=== PATIENT | female | born 1985 | race Caucasian/White ===

== ENCOUNTER 2017-07-18 16:29 | Emergency (ER) | payer OTHER ==
[~2017-07-18] VITALS: Ht 157.5 cm; Wt 71.3 kg
[2017-07-18 16:45] VITALS: TEMP 37; Ht 157.5 cm; Wt 71.3 kg
[2017-07-18] MEDS ORDERED: SODIUM CHLORIDE 0.9% 1000ML 1,000 ML IV STA (16:58)
[2017-07-18] MEDS ORDERED: MoRPHine SULFATE 4 MG/ML 1 ML CARP\\VIAL IV STA ×2 (17:01→18:51)
--- NOTE | 2017-07-18 17:10 | EMERGENCY ROOM VISIT NOTE ---
ED Visit Note First contact with patient: 16:48 CHIEF COMPLAINT: Right lower quadrant abdominal pain HISTORY OF PRESENTING ILLNESS: This is a 32-year-old female presents to the emergency department with complaint of right lower quadrant pain for the past 2 days. Patient states the pain was initially intermittent, but has become more severe and constant since yesterday afternoon, worse with certain movements, better with rest, 7/10. The pain does not radiate. She has tried Motrin this morning around 10 AM, which she states did not help. She notes that she had some watery diarrhea the day before her pain started, but has not had any diarrhea since that time. She denies any bloody or black stools. She has had nausea, but no vomiting, chills, but no fever. She notes that she has not had much of an appetite for the past 2 days. She does note some increased urinary frequency, but denies any dysuria, hematuria, or urgency. She does report a history of UTI and kidney stones in the past. She has had 2 C-sections and a partial hysterectomy, no other abdominal surgeries. She denies any chest pain, shortness of breath, dizziness or syncope, back pain, abnormal vaginal bleeding or discharge, or rash. REVIEW OF SYSTEMS: A complete 10 point review of systems was reviewed with the patient with pertinent positives and negatives as per history of present illness. All else were negative. PAST MEDICAL HISTORY: Anxiety SOCIAL HISTORY: Lives at home with family. She is a former smoker, denies alcohol and recreational drug use. ALLERGIES: Reviewed in chart. PHYSICAL EXAM: CONSTITUTIONAL: Pleasant and cooperative. No acute distress. Mildly dehydrated , but otherwise well appearing and well nourished. HEENT: Normocephalic, atraumatic. Pupils equal, round and reactive to light, EOMI. TMs normal. Pharynx normal. Tacky mucous membranes. NECK: Supple, full active range of motion without discomfort. RESPIRATORY: Clear to auscultation bilaterally with no wheezing, crackles, rhonchi or stridor. Equal expansion bilaterally. CARDIOVASCULAR: Regular rate and rhythm with no murmurs, rubs or gallops. Normal peripheral perfusion. No edema. GASTROINTESTINAL: Soft, moderately tender in the right lower quadrant and suprapubic region, nondistended. Positive McBurney's point tenderness, but no rebound tenderness or guarding. Negative Rovsing. Positive psoas sign. No palpable masses or HSM. Bowel sounds present in all quadrants. No CVA tenderness bilaterally. MUSCULOSKELETAL: Full range of motion of all joints without discomfort. INTEGUMENTARY: No rash or other significant dermatologic conditions noted. NEUROLOGIC: Alert and oriented X 4 with normal affect. Normal strength and sensation in all 4 extremities. No focal neurologic deficits noted. Normal speech. Normal gait observed. ED COURSE AND MEDICAL DECISION MAKING: CC: Patient presenting with complaint of RLQ pain DIFFERENTIAL DIAGNOSIS: Includes, but not limited to appendicitis, mesenteric adenitis, UTI, pyelonephritis, ureteral stone, ovarian cyst, ovarian torsion, TOA, among others. INTERPRETATION OF LABS: No leukocytosis, no anemia, no significant electrolyte abnormalities, normal renal function, normal liver enzymes and lipase. UA appears consistent with contamination. IMAGING: ABDOMEN AND PELVIS CT WITH IV CONTRAST CT DOSE: 384.07 mGy.cm HISTORY: Right lower quadrant abdominal pain. TECHNIQUE: Multiaxial CT images of the abdomen and pelvis were performed following the use of intravenous contrast. A dose lowering technique was utilized adhering to the principles of ALARA. COMPARISON STUDY: None. FINDINGS: The lung bases are clear. No pneumoperitoneum. No pneumatosis. There are few scattered subcentimeter hypodense lesions within the right hepatic lobe. The largest measures 5 mm. These are too small to characterize but favor cysts. The spleen, adrenal glands, pancreas, gallbladder, and kidneys are unremarkable. No retroperitoneal lymphadenopathy. Left retroaortic renal vein. The bladder is unremarkable. Trace pelvic fluid. The uterus appears surgically absent. No bowel wall thickening or obstruction. Normal appendix. Normal left ovary. Within the right adnexa there is a 6.6 x 5.4 cm cystic structure obtaining a slightly thickened wall and mild surrounding inflammatory change. This is likely associated with the right ovary. There is no gas within this cystic structure. IMPRESSION: 1. A 6.6 x 5.4 cm cystic structure within the right adnexa which demonstrates a slightly thickened wall and mild surrounding inflammatory change. This is likely associated with the right ovary and favors a complicated cyst or endometrioma. An ovarian neoplasm. Also have a similar appearance. A tubo-ovarian abscess or ovarian torsion would also be within the differential diagnosis but are considered less likely. Follow-up pelvic ultrasound is recommended for further evaluation. 2. Normal appendix. 3. No bowel wall thickening or obstruction. ----- ULTRASOUND OF THE PELVIS CLINICAL HISTORY: Right pelvic pain. Ovarian cyst seen by CT. COMPARISON STUDY: Pelvic CT dated 07/18/2017 TECHNIQUE: Real-time, grayscale, and color flow sonography of the pelvis is performed transabdominally. Images are reviewed in the transverse and longitudinal planes. FINDINGS: Uterus: The uterus is surgically absent Ovaries: The ovaries are normal in morphology. The right ovary measures 6.3 x 5.4 x 6.3 cm and the left ovary measures 3.5 x 1.7 x 2.6 cm. There is a 5.6 cm complex cystic lesion identified in the right ovary. Normal Doppler waveforms are shown within both ovaries. Pelvis: There is no free fluid in the cul-de-sac. No concerning adnexal lesion is seen. IMPRESSION: 1. There is a 5.6 cm complex cystic lesion identified in the right ovary, typical in appearance for a hemorrhagic cyst. Precautionary sonographic follow-up in 3 menstrual cycles is recommended to document resolution. 2. The left ovary is normal in appearance. 3. There is no sonographic evidence of ovarian torsion at the time of examination. 4. The uterus is surgically absent. MEDICATION RECONCILIATION: I attest that I have personally reviewed the patient 's current medication list. INITIAL VITAL SIGNS REVIEW: I reviewed the patient's initial vital signs and interpret them as follows: T: Afebrile; BP: Normotensive; HR: Within normal limits; RR: Within normal limits; Pulse Ox: Within normal limits on room air. Blood pressure screening: The patient was found to have normal blood pressure on screening and does not require follow-up for repeat blood pressure check. SUMMARY: Patient was evaluated at bedside, history and physical exam performed. Patient is alert and oriented, no acute distress, resting, in the stretcher. Patient does have moderate tenderness of the right lower quadrant, positive McBurney's point tenderness, and positive psoas sign. In setting of progressively worsening right lower quadrant pain with nausea, diarrhea, chills, and decreased appetite, I am concerned for possible appendicitis. Orders were placed at bedside for labs, UA and urine , IV fluids for hydration, IV morphine for pain, CT abdomen/pelvis with IV contrast to evaluate for appendicitis and other intra-abdominal etiology. Patient discussed with Dr. Crow, who agrees with my assessment and plan. Labs and imaging reviewed as above, CT imaging notes a large right ovarian cystic structure. Pelvic ultrasound ordered for further evaluation. Pelvic ultrasound reviewed, findings consistent with a right hemorrhagic ovarian cyst and no evidence of ovarian torsion. Patient reassessed multiple times throughout ED stay, she reports that her symptoms have improved after pain medication, and she is tolerating p.o. fluids well. Patient was updated on all results and plan for discharge, she was encouraged to follow closely with her back wedger for further management of her ovarian cyst. Rx for [place] was provided to the patient for pain management, and she was given take home packs of [place] and Zofran. She was educated regarding these medications. Patient was also given strict return precautions should her symptoms worsen, she verbalized understanding. Patient was discharged home in stable condition and ambulatory. Current/Historical Medications Scheduled PRN Hydrocodone/Acetaminophen 5MG/325MG ([place] 5MG/325MG), 1 TABLET PO Q6H PRN for Severe Pain Paroxetine (Paxil), 20 MG PO DAILY PRN for Anxiety Allergies Coded Allergies: Cefaclor (Unverified Adverse Reaction, Unknown, HIVES, 07/18/17) Vital Signs Date Time Temp Pulse Resp B/P (MAP) Pulse Ox O2 Delivery O2 Flow Rate FiO2 07/18/17 21:00 75 16 121/65 98 07/18/17 20:00 72 18 120/72 98 Room Air 07/18/17 18:43 78 18 115/67 98 Room Air 07/18/17 17:28 79 07/18/17 16:45 37.0 90 18 124/75 98 Room Air Laboratory Results 07/18/17 17:20 Red Blood Count 4.96, Mean Corpuscular Volume 84.7, Mean Corpuscular Hemoglobin 28.6, Mean Corpuscular Hemoglobin Concent 33.8, Mean Platelet Volume 10.5, Neutrophils (%) (Auto) 62.2, Lymphocytes (%) (Auto) 26.0, Monocytes (%) (Auto) 7.9, Eosinophils (%) (Auto) 3.2, Basophils (%) (Auto) 0.4, Neutrophils # (Auto) 5.59, Lymphocytes # (Auto) 2.34, Monocytes # (Auto) 0.71, Eosinophils # (Auto) 0.29, Basophils # (Auto) 0.04 07/18/17 17:20 Test 07/18/17 17:05 07/18/17 17:20 Urine Color YELLOW Urine Appearance CLOUDY (CLEAR) Urine pH 7.5 (4.5-7.5) Urine Specific [place] 1.026 (1.000-1.030) Urine Protein NEG (NEG) Urine Glucose (UA) NEG (NEG) Urine Ketones NEG (NEG) Urine Occult Blood NEG (NEG) Urine Nitrite NEG (NEG) Urine Bilirubin NEG (NEG) Urine Urobilinogen NEG (NEG) Urine Leukocyte Esterase MODERATE (NEG) Urine WBC (Auto) 1-5 /hpf (0-5) Urine RBC (Auto) 5-10 /hpf (0-4) Urine Hyaline Casts (Auto) 1-5 /lpf (0-5) Urine Epithelial Cells (Auto) >30 /lpf (0-5) Urine Bacteria (Auto) NEG (NEG) Urine Test NEG (NEG) White Blood Count 9.00 K/uL (4.8-10.8) Red Blood Count 4.96 M/uL (4.2-5.4) Hemoglobin 14.2 g/dL (12.0-16.0) Hematocrit 42.0 % (37-47) Mean Corpuscular Volume 84.7 fL (80-100) Mean Corpuscular Hemoglobin 28.6 pg (25-34) Mean Corpuscular Hemoglobin Concent 33.8 g/dl (32-36) Platelet Count 299 K/uL (130-400) Mean Platelet Volume 10.5 fL (7.4-10.4) Neutrophils (%) (Auto) 62.2 % Lymphocytes (%) (Auto) 26.0 % Monocytes (%) (Auto) 7.9 % Eosinophils (%) (Auto) 3.2 % Basophils (%) (Auto) 0.4 % Neutrophils # (Auto) 5.59 K/uL (1.4-6.5) Lymphocytes # (Auto) 2.34 K/uL (1.2-3.4) Monocytes # (Auto) 0.71 K/uL (0.11-0.59) Eosinophils # (Auto) 0.29 K/uL (0-0.5) Basophils # (Auto) 0.04 K/uL (0-0.2) RDW Standard Deviation 39.9 fL (36.4-46.3) RDW Coefficient of Variation 13.0 % (11.5-14.5) Immature Granulocyte % (Auto) 0.3 % Immature Granulocyte # (Auto) 0.03 K/uL (0.00-0.02) Anion Gap 4.0 mmol/L (3-11) Est Creatinine Clear Calc Drug Dose 78.8 ml/min Estimated GFR () 92.9 Estimated GFR (Non- 80.2 BUN/Creatinine Ratio 8.8 (10-20) Calcium Level 8.7 mg/dl (8.5-10.1) Total Bilirubin 0.5 mg/dl (0.2-1) Direct Bilirubin < 0.1 mg/dl (0-0.2) Aspartate Amino Transf (AST/SGOT) 18 U/L (15-37) Alanine Aminotransferase (ALT/SGPT) 22 U/L (12-78) Alkaline Phosphatase 81 U/L (45-117) Total Protein 7.7 gm/dl (6.4-8.2) Albumin 3.6 gm/dl (3.4-5.0) Lipase 186 U/L (73-393) Medications Administered Medications (Trade) Dose Ordered Sig/Emiliano Route Start Time Stop Time Status Last Admin Dose Admin Sodium Chloride 1,000 ml @ 999 mls/hr Q1H1M STAT IV 07/18/17 16:58 07/18/17 17:58 DC 07/18/17 17:32 999 MLS/HR Morphine Sulfate (MoRPHine SULFATE INJ) 4 mg NOW STAT IV 07/18/17 17:01 07/18/17 17:02 DC 07/18/17 17:33 4 MG Morphine Sulfate (MoRPHine SULFATE INJ) 4 mg NOW STAT IV 07/18/17 18:51 07/18/17 18:53 DC 07/18/17 19:04 4 MG Ketorolac Tromethamine (Toradol Inj) 15 mg NOW STAT IV 07/18/17 19:59 07/18/17 20:00 DC 07/18/17 19:59 15 MG Acetaminophen/ Hydrocodone Bitart ([place] 5/325mg Home Pack) 1 homepack UD ONCE PO 07/18/17 20:45 07/18/17 20:46 DC 07/18/17 20:45 1 HOMEPACK Ondansetron HCl (ZOFRAN ODT 4MG Home Pack) 1 homepack UD ONCE PO 07/18/17 20:45 07/18/17 20:46 DC 07/18/17 20:45 1 HOMEPACK Departure Information Impression Primary Impression: Hemorrhagic cyst of right ovary Dispostion Home / Self-Care Condition GOOD Prescriptions Hydrocodone/Acetaminophen 5MG/325MG ([place] 5MG/325MG) Tab 1 TABLET PO Q6H Y for Severe Pain, #20 TAB For Initial Treatment Prov: Geeta Bingham CRNP 07/18/17 Referrals Azam Cárdenas D.O. (PCP) Patient Instructions ED Cyst Ovarian, [facility] Additional Instructions You have been treated in the Emergency Department for your abdominal pain. Laboratory results and imaging studies have ruled out any emergent causes for your symptoms which would warrant admission or surgery. Imaging today does show that you have a large hemorrhagic ovarian cyst, which is most likely the cause of your pain. Ovarian cysts will often resolve over time on their own, but sometimes require surgery if not improving or getting worse. You should follow up with your back wedger regarding further management and should have a repeat ultrasound in 2-3 months. You have been prescribed Zofran to be used every 6-8 hours as needed for severe nausea or vomiting. Take as prescribed. You have been prescribed [place] (hydrocodone/acetaminophen) to be used 1 tablet every 6 hours as needed for SEVERE pain. This is a narcotic, do not drive, operate machinery, or drink alcohol while you are taking this medication. For pain control, you can use the following [id number] medicines (if >12 yo): Regular strength (200 mg/tab) Advil (ibuprofen) 3 tabs every 6-8 hours as needed. Do not exceed a dose of 2400 mg per day. Use a heating pad to your lower abdomen for comfort. Drink plenty of fluids to stay well hydrated. Please follow-up with your Primary Care Provider and/or back wedger in the next few days for further management. Return to the emergency department for severe or sudden worsening abdominal or back pain, worsening nausea/vomiting, vomiting blood, blood in your stool or urine, fevers > 101.5, severe dizziness or passing out, or any other concerns. Work Instructions Return To Work: 3 days
[2017-07-18] MEDS ORDERED: OPTIRAY 320 IV PRN (17:15)
[2017-07-18] MEDS ORDERED: PARO1TAB27 PO (17:38)
[2017-07-18 17:39] LABS: BASO % 0.4 %; BASO ABS # 0.04 K/uL (0-0.2); EOS % 3.2 %; EOS ABS # 0.29 K/uL (0-0.5); HEMOGLOBIN 14.2 g/dL (12.0-16.0); IG# 0.03 K/uL (0.00-0.02); LYMPH ABS # 2.34 K/uL (1.2-3.4); MEAN CELL VOLUME 84.7 fL (80-100); MEAN CORPUSCULAR HEMOGLOBIN 28.6 pg (25-34); MEAN CORPUSCULAR HGB CONC 33.8 g/dl (32-36); MEAN PLATELET VOLUME 10.5 fL (7.4-10.4); MONO % 7.9 %; MONO ABS # 0.71 K/uL (0.11-0.59); NEUT % 62.2 %; NEUT ABS # 5.59 K/uL (1.4-6.5); PLATELET COUNT 299 K/uL (130-400); RED CELL DISTRIBUTION WIDTH SD 39.9 fL (36.4-46.3)
[2017-07-18 17:59] LABS: ALBUMIN 3.6 gm/dl (3.4-5.0); ALT/SGPT 22 U/L (12-78); BLOOD UREA NITROGEN 8 mg/dl (7-18); CALCIUM 8.7 mg/dl (8.5-10.1); CARBON DIOXIDE 30 mmol/L (21-32); CREATININE 0.93 mg/dl (0.60-1.20); GLUCOSE 82 mg/dl (70-99); LIPASE 186 U/L (73-393); POTASSIUM 3.4 mmol/L (3.5-5.1); SODIUM 138 mmol/L (136-145)
[2017-07-18 18:02] LABS: ALKALINE PHOSPHATASE 81 U/L (45-117); AST/SGOT 18 U/L (15-37); TOTAL PROTEIN 7.7 gm/dl (6.4-8.2)
--- NOTE | 2017-07-18 18:33 | DIAGNOSTIC IMAGING REPORT ---
ABDOMEN AND PELVIS CT WITH IV CONTRAST CT DOSE: 384.07 mGy.cm HISTORY: Right lower quadrant abdominal pain. TECHNIQUE: Multiaxial CT images of the abdomen and pelvis were performed following the use of intravenous contrast. A dose lowering technique was utilized adhering to the principles of ALARA. COMPARISON STUDY: None. FINDINGS: The lung bases are clear. No pneumoperitoneum. No pneumatosis. There are few scattered subcentimeter hypodense lesions within the right hepatic lobe. The largest measures 5 mm. These are too small to characterize but favor cysts. The spleen, adrenal glands, pancreas, gallbladder, and kidneys are unremarkable. No retroperitoneal lymphadenopathy. Left retroaortic renal vein. The bladder is unremarkable. Trace pelvic fluid. The uterus appears surgically absent. No bowel wall thickening or obstruction. Normal appendix. Normal left ovary. Within the right adnexa there is a 6.6 x 5.4 cm cystic structure obtaining a slightly thickened wall and mild surrounding inflammatory change. This is likely associated with the right ovary. There is no gas within this cystic structure. IMPRESSION: 1. A 6.6 x 5.4 cm cystic structure within the right adnexa which demonstrates a slightly thickened wall and mild surrounding inflammatory change. This is likely associated with the right ovary and favors a complicated cyst or endometrioma. An ovarian neoplasm. Also have a similar appearance. A tubo-ovarian abscess or ovarian torsion would also be within the differential diagnosis but are considered less likely. Follow-up pelvic ultrasound is recommended for further evaluation. 2. Normal appendix. 3. No bowel wall thickening or obstruction. Electronically signed by: Kuldip Andrade M.D. 07/18/2017 6:32 PM Dictated Date/Time: 07/18/2017 6:21 PM
--- NOTE | 2017-07-18 19:47 | DIAGNOSTIC IMAGING REPORT ---
ULTRASOUND OF THE PELVIS CLINICAL HISTORY: Right pelvic pain. Ovarian cyst seen by CT. COMPARISON STUDY: Pelvic CT dated 07/18/2017 TECHNIQUE: Real-time, grayscale, and color flow sonography of the pelvis is performed transabdominally. Images are reviewed in the transverse and longitudinal planes. FINDINGS: Uterus: The uterus is surgically absent Ovaries: The ovaries are normal in morphology. The right ovary measures 6.3 x 5.4 x 6.3 cm and the left ovary measures 3.5 x 1.7 x 2.6 cm. There is a 5.6 cm complex cystic lesion identified in the right ovary. Normal Doppler waveforms are shown within both ovaries. Pelvis: There is no free fluid in the cul-de-sac. No concerning adnexal lesion is seen. IMPRESSION: 1. There is a 5.6 cm complex cystic lesion identified in the right ovary, typical in appearance for a hemorrhagic cyst. Precautionary sonographic follow-up in 3 menstrual cycles is recommended to document resolution. 2. The left ovary is normal in appearance. 3. There is no sonographic evidence of ovarian torsion at the time of examination. 4. The uterus is surgically absent. Electronically signed by: Flex Nichols M.D. 07/18/2017 7:46 PM Dictated Date/Time: 07/18/2017 7:43 PM
[2017-07-18] MEDS ORDERED: KETOROLAC TROMETHAMINE 30 MG/ML VIAL IV STA (19:59)
[2017-07-18] MEDS ORDERED: NORCO 5/325MG HOME PACK PO ONE (20:45)
[2017-07-18] MEDS ORDERED: ONDANSETRON HOME PACK 4MG OD TAB PO ONE (20:45)
[2017-07-18] MEDS ORDERED: HYDR-5688 PO (20:46)
[2017-07-18 21:00] VITALS: BP 121/65; PULSE 75; O2SAT 98
== END 2017-07-18 21:00 | disposition home or self-care (01) ==
LOC: C.EDB 16:30 → C.EDA 21:00
DX: N83.201 Unspecified ovarian cyst, right side (principal); F41.9 Anxiety disorder, unspecified; Z87.440 Personal history of urinary (tract) infections; Z87.442 Personal history of urinary calculi; Z98.891 History of uterine scar from previous surgery; Z90.711 Acquired absence of uterus with remaining cervical stump; Z87.891 Personal history of nicotine dependence; Z79.899 Other long term (current) drug therapy; Z88.1 Allergy status to other antibiotic agents

== ENCOUNTER 2017-08-10 19:11 | Emergency (ER) | payer OTHER ==
[~2017-08-10] VITALS: Ht 157.5 cm; Wt 71.7 kg
[~2017-08-10 19:11] MED LIST: HYDR-5688 PO; PARO1TAB27 PO
[2017-08-10 19:17] VITALS: TEMP 37; Ht 157.5 cm; Wt 71.7 kg
[2017-08-10] MEDS ORDERED: OXYC1TAB3 PO (19:34)
[2017-08-10 19:47] VITALS: BP 98/61; PULSE 95; O2SAT 96
--- NOTE | 2017-08-10 19:53 | EMERGENCY ROOM VISIT NOTE ---
History Report prepared by Samra: Eduard Rodriguez Under the Supervision of: Dr. Gilberto Pastor M.D. First contact with patient: 19:23 Chief Complaint: PELVIC PAIN Stated Complaint: RIGHT SIDE PAIN, OVARIAN CYST History of Present Illness The patient is a 32 year old female who presents to the Emergency Room with complaints of worsening right lower quadrant abdominal tenderness beginning over a month ago. She rates her pain as a 10/10 in severity. Per the patient's report, she was seen here on July 18 for right lower quadrant pain. The patient was found to have a 6.6 cm right ovarian cyst and was discharged on Mosca. The patient reports that she has still been experiencing pain intermittently for the past month. She states if she stands for a long period of time or is partaking in exertional activity, she usually notices the pain worsens at the end of the day. The patient states today she woke up and noticed her pain worsened to a 10/10 in severity. She reports her pain has been constant since. She reports she has not been able to get comfortable due to the pain. The patient states the pain radiates from her right side into her back. She states she went to [facility] today where they did an ultrasound. The patient states the ultrasound still only showed the right sided ovarian cyst. She reports that she was given Morphine and Toradol for her pain. She also had blood work and a urinalysis. The patient states she was discharged home on a prescription of 800 mg of Ibuprofen. She reports she took a dose at 1400. The patient denies vomiting, fevers, diarrhea, vaginal discharge or bleeding, urinary symptoms. The patient states she did follow up with [facility] in [place] for her cyst. She reports that they decided to schedule an ultrasound for August 14. The patient states that they plan on removing her cyst or ovary. Source of History: patient Onset: over a month ago Position: abdomen (RLQ) Symptom Intensity: 10/10 Timing: intermittent Modifying Factors (Worsening): movement, other (standing on feet for an extended period of time) Modifying Factors (Relieving): other (Ibuprofen, Mosca, Toradol, Morphine) Associated Symptoms: + back pain, No fevers, No vomiting, No diarrhea, No urinary symptoms Note: Denies: vaginal bleeding or discharge Review of Systems See HPI for pertinent positives & negatives. A total of 10 systems reviewed and were otherwise negative. Past Medical & Surgical Medical Problems: (1) Ovarian cyst Surgical Problems: (1) H/O: (2) H/O: hysterectomy Family History Diabetes mellitus Social History Smoking Status: Never Smoker Smokeless Tobacco Use: No Alcohol Use: none Drug Use: none Marital Status: Housing Status: lives with family Occupation Status: employed Current/Historical Medications Scheduled PRN Hydrocodone/Acetaminophen 5MG/325MG (Mosca 5MG/325MG), 1 TABLET PO Q6H PRN for Severe Pain Oxycodone Ir (Roxicodone Ir), 5 MG PO Q4H PRN for Pain Paroxetine (Paxil), 20 MG PO DAILY PRN for Anxiety Allergies Coded Allergies: Cefaclor (Unverified Adverse Reaction, Unknown, HIVES, 07/18/17) Physical Exam Vital Signs Date Time Temp Pulse Resp B/P (MAP) Pulse Ox O2 Delivery O2 Flow Rate FiO2 08/10/17 19:17 37.0 97 18 121/44 96 Room Air Physical Exam Constitutional: Vital signs reviewed. She appears in no acute distress. Eyes: Pupils are equal round reactive to light. Conjunctiva are noninjected. ENT: Pharynx is clear without erythema or exudate. Mucous membranes are moist. Neck supple without meningeal signs. Respiratory: Clear to auscultation bilaterally. Breath sounds are equal bilaterally. Cardiovascular: Regular rate and rhythm. No rubs or gallops. GI: Soft, nondistended and nontender. Bowel sounds are present. Musculoskeletal: No peripheral edema. No CVA tenderness. Integumentary: No cyanosis. Neurological: The patient is awake and alert. No focal deficits. Psychiatric: Normal affect. Medical Decision & Procedures ED Course 1924: The patient was evaluated in room C11B. A complete history and physical exam was performed. 193: I discussed the treatment plan with the patient. She verbalized agreement of the treatment plan. The patient was discharged home. Medical Decision This is a 32-year-old female presents with right-sided abdominal pain. I did perform a limited focused review of portions of the patient's old chart on the electronic medical record. The patient was seen on July 18 for RLQ abdominal pain. She had a CT which showed a 6.6 cm right ovarian cyst. She was discharged on Mosca. I did evaluate the patient as noted above. She does not appear in any acute distress. She has no tenderness on examination to suggest an acute ovarian torsion. She just went to [facility] where she had a full workup including ultrasound of the pelvis, blood work and urinalysis. She was given morphine IV there. I did explain to her that there was nothing further diagnostically that needed to be done given her workup just earlier today. I did offer to refer her to a different surveillance systems analyst if she preferred and offered her narcotics for pain control. She stated that the Mosca was not helping her and so she has some left but has not been taking them. I did give her OxyIR as a replacement and discussed precautions with her regarding addiction potential and other side effects. She was advised to use them very sparingly and to follow-up with her surveillance systems analyst or her surveillance systems analyst. She was discharged in good condition. [place] Drug Monitoring Program Search Results: patient reviewed within database, no issues identified Medication Reconcilliation Current Medication List: was personally reviewed by me Blood Pressure Screening Patient's blood pressure: Normal blood pressure Impression Primary Impression: Right ovarian cyst Additional Impression: Pelvic pain Scribe Attestation The scribe's documentation has been prepared under my direct and personally reviewed by me in its entirety. I confirm that the note above accurately reflects all work, treatment, procedures, and medical decision making performed by me. Departure Information Dispostion Home / Self-Care Prescriptions Oxycodone Ir (Roxicodone Ir) 5 Mg Tab 5 MG PO Q4H Y for Pain, #20 TAB Prov: Gilberto Pastor M.D. 08/10/17 Referrals No Doctor, Assigned (PCP) Forms HOME CARE DOCUMENTATION FORM, IMPORTANT VISIT INFORMATION, WORK / SCHOOL INSTRUCTIONS Patient Instructions ED Cyst Ovarian, [facility] Additional Instructions You have been examined and treated today on an emergency basis only. This is not a substitute for, or an effort to provide, complete comprehensive medical care. It is impossible to recognize and treat all injuries or illnesses in a single emergency department visit. It is therefore important that you follow up closely with your surveillance systems analyst or Dr. Santiago of gynecology here. Call as soon as possible for an appointment. Return for worsening symptoms or if you develop fever, vomiting, or any other concerning symptoms. Problem Qualifiers
== END 2017-08-10 19:49 | disposition home or self-care (01) ==
LOC: C.EDB 19:12 → C.EDC 19:49
DX: N83.201 Unspecified ovarian cyst, right side (principal); Z88.1 Allergy status to other antibiotic agents